=== PATIENT | male | born 1965 | race Caucasian/White ===

== ENCOUNTER 2019-06-22 09:45 | Emergency (ER) | payer MEDICAID ==
[2019-06-22] MEDS ORDERED: Sodium Chloride 0.9% 10 ML Syringe FLUSH PRN (09:53)
--- NOTE | 2019-06-22 10:09 | EDM.PDOC ---
ED HPI GENERAL MEDICAL PROBLEM - General Chief Complaint: General Time Seen by Provider: 06/22/19 09:45 Source of Information: Reports: Patient, EMS History Limitations: Reports: No Limitations - History of Present Illness INITIAL COMMENTS - FREE TEXT/NARRATIVE: Pt. presents to ER with complaints of decreased appetite, infrequent bowel movements, jaundice, chills, and fatigue. Pt. states that he has a history of cirrhosis and alcoholism. Pt. was quite confused during his transport by EMS. He was noted to be profoundly jaundiced and states that he has been for the past 2 weeks. Denies any blood in stools. No melena, hematochezia, or hematemesis. No chest pain or shortness of breath. Pt. has been undergoing intermittent paracentesis since 2017. Appears the last episode of paracentesis was 11/01. He has a history of umbilical hernia which he states they are "watching". presented to ER and states that the jaundice has been present for several years but it has gotten worse over the past several weeks. He has been more confused over the past weeks as well. Onset: Today Onset Date: 06/22/19 Location: Reports: Abdomen, Generalized Quality: Reports: Dull Severity: Moderate Associated Symptoms: Reports: Confusion, Loss of Appetite. Denies: Nausea/ Vomiting - Related Data Allergies Allergy/AdvReac Type Severity Reaction Status Date / Time No Known Allergies Allergy Verified 03/02/15 15:04 Home Meds: Home Meds Furosemide [Lasix] 40 mg PO DAILY 06/22/19 [History] Spironolactone [Aldactone] 100 mg PO DAILY 06/22/19 [History] Past Medical History - Past Health History Medical/Surgical History: Denies Medical/Surgical History ED ROS GENERAL - Review of Systems Review Of Systems: See Below Constitutional: Reports: Malaise, Weakness, Fatigue, Decreased Appetite HEENT: Reports: Other (severe jaundice) Respiratory: Reports: No Symptoms Cardiovascular: Reports: No Symptoms Endocrine: Reports: Fatigue GI/Abdominal: Reports: Abdominal Pain : Reports: No Symptoms Musculoskeletal: Reports: No Symptoms Skin: Reports: Jaundice, Pruritis Neurological: Reports: Confusion Psychiatric: Reports: No Symptoms Hematologic/Lymphatic: Reports: Anemia Immunologic: Reports: No Symptoms ED EXAM, GENERAL - Physical Exam Exam: See Below Exam Limited By: No Limitations General Appearance: Alert, WD/WN, No Apparent Distress Eye Exam: Bilateral Eye: Other (jaundice) Throat/Mouth: Normal Inspection, Normal Lips, Normal Oropharynx, Normal Voice, No Airway Compromise Head: Atraumatic, Normocephalic Neck: Normal Inspection, Supple, Non-Tender, Full Range of Motion Respiratory/Chest: No Respiratory Distress, Lungs Clear, Normal Breath Sounds, No Accessory Muscle Use, Chest Non-Tender Cardiovascular: Normal Peripheral Pulses, Regular Rate, Rhythm, No Edema, No Gallop, No JVD, No Murmur, No Rub Peripheral Pulses: 4+: Radial (L) GI/Abdominal: Soft, Abnormal Bowel Sounds (diminished bowel sounds), Hepatomegaly, Other (umbilical hernia, ascites) (Male) Exam: Deferred Rectal (Males) Exam: Deferred Back Exam: Normal Inspection, Full Range of Motion Extremities: Normal Inspection Neurological: Alert, CN II-XII Intact, Inattentive, Confused, Disoriented, Slow to Respond Psychiatric: Normal Affect, Normal Mood Skin Exam: Warm, Dry, Intact, Normal Color, No Rash Lymphatic: No Adenopathy Course - Vital Signs Last Recorded V/S: Last Vital Signs Temp 37.3 C 06/22/19 09:45 Pulse 96 06/22/19 09:45 Resp 18 06/22/19 09:45 BP 104/55 L 06/22/19 09:45 Pulse Ox 97 06/22/19 09:45 - Orders/Labs/Meds Orders: Active Orders 24 hr Category Date Time Status AMMONIA [REF] Stat Lab 06/22/19 10:06 Ordered AMYLASE [CHEM] Stat Lab 06/22/19 09:54 Ordered Blood Alcohol [ETHANOL BLOOD MEDICAL] [CHEM] Stat Lab 06/22/19 09:54 Ordered COMPREHENSIVE METABOLIC PN,CMP [CHEM] Stat Lab 06/22/19 09:54 Ordered CRP [C-REACTIVE PROTEIN] [CHEM] Stat Lab 06/22/19 09:54 Ordered CULTURE BLOOD [BC] Stat Lab 06/22/19 09:55 Ordered CULTURE BLOOD [BC] Stat Lab 06/22/19 09:55 Ordered LIPASE [CHEM] Stat Lab 06/22/19 09:56 Ordered MAGNESIUM [CHEM] Stat Lab 06/22/19 09:54 Ordered PHOSPHORUS [CHEM] Stat Lab 06/22/19 09:54 Ordered UA W/MICROSCOPIC [URIN] Stat Lab 06/22/19 09:55 Ordered Piperacillin/Tazobactam [Zosyn] 3.375 gm Med 06/22/19 11:16 Ordered Sodium Chloride 0.9% [Normal Saline] 100 ml IV STAT Sodium Chloride 0.9% [Saline Flush] Med 06/22/19 09:53 Active 10 ml FLUSH ASDIRECTED PRN Blood Culture x2 Reflex Set [OM.PC] Stat Oth 06/22/19 09:54 Ordered Peripheral IV Insertion Adult [OM.PC] Routine Oth 06/22/19 09:54 Ordered Medication Orders Piperacillin Sod/Tazobactam (Sod 3.375 gm/ Sodium Chloride) 100 mls @ 200 mls/ hr IV STAT ONE Stop: 06/22/19 11:45 Last Admin: 06/22/19 11:33 Dose: 200 mls/hr Sodium Chloride (Saline Flush) 10 ml FLUSH ASDIRECTED PRN PRN Reason: Keep Vein Open Labs: Laboratory Tests 06/22/19 06/22/19 06/22/19 Range/Units 10:10 10:10 10:10 WBC 9.3 (4.0-10.0) x10^3/uL RBC 1.67 L (4.5-6.0) x10^6/uL Hgb 7.0 L (14.0-18.0) g/dL Hct 20.2 L (40.0-52.0) % MCV 121.0 H (78.0-93.0) fL MCH 41.9 H (26.0-32.0) pg MCHC 34.7 (32.0-36.0) g/dL RDW Coeff of Lyudmila 14.7 (10.0-15.0) % Plt Count 148 (130-400) x10^3/uL Neut % (Auto) 84.6 H (50.0-80.0) % Lymph % (Auto) 4.3 L (25.0-50.0) % Gaines % (Auto) 10.9 (2.0-11.0) % Eos % (Auto) 0.1 (0.0-4.0) % Baso % (Auto) 0.1 L (0.2-1.2) % PT 20.6 H (10.0-12.8) SEC INR 1.8 L (2.0-3.5) Sodium 125 L* (136-145) mmol/L Potassium 2.7 L* (3.5-5.1) mmol/L Chloride 89 L (98-107) mmol/L Carbon Dioxide 26 (21-32) mmol/L Anion Gap 12.7 (10-20) mmol/L BUN 31 H (7-18) mg/dL Creatinine 1.6 H (0.70-1.30) mg/dL Est Cr Clr Drug Dosing TNP Estimated GFR (MDRD) 46 Glucose 99 (74-106) mg/dL Lactic Acid (0.4-2.0) mmol/L Calcium 8.0 L (8.5-10.1) mg/dL Corrected Calcium 10.08 (8.5-10.1) mg/dL Phosphorus 3.4 (2.6-4.7) mg/dL Magnesium 2.2 (1.8-2.4) mg/dL Direct Bilirubin (0.00-0.20) mg/dL AST 114 H (15-37) U/L ALT 88 H (16-63) U/L Alkaline Phosphatase 75 (46-116) U/L C-Reactive Protein 11.6 H (<=0.9) mg/dL Total Protein 7.3 (6.4-8.2) g/dL Albumin 1.4 L (3.4-5.0) g/dL Globulin 5.9 Albumin/Globulin Ratio 0.24 Amylase 41 (25-115) U/L Lipase 284 (73-393) U/L Acetaminophen (10-30) ug/ml Ethyl Alcohol < 3 (0-3) mg/dL 06/22/19 06/22/19 Range/Units 10:10 10:10 WBC (4.0-10.0) x10^3/uL RBC (4.5-6.0) x10^6/uL Hgb (14.0-18.0) g/dL Hct (40.0-52.0) % MCV (78.0-93.0) fL MCH (26.0-32.0) pg MCHC (32.0-36.0) g/dL RDW Coeff of Lyudmila (10.0-15.0) % Plt Count (130-400) x10^3/uL Neut % (Auto) (50.0-80.0) % Lymph % (Auto) (25.0-50.0) % Gaines % (Auto) (2.0-11.0) % Eos % (Auto) (0.0-4.0) % Baso % (Auto) (0.2-1.2) % PT (10.0-12.8) SEC INR (2.0-3.5) Sodium (136-145) mmol/L Potassium (3.5-5.1) mmol/L Chloride (98-107) mmol/L Carbon Dioxide (21-32) mmol/L Anion Gap (10-20) mmol/L BUN (7-18) mg/dL Creatinine (0.70-1.30) mg/dL Est Cr Clr Drug Dosing Estimated GFR (MDRD) Glucose (74-106) mg/dL Lactic Acid 3.0 H* (0.4-2.0) mmol/L Calcium (8.5-10.1) mg/dL Corrected Calcium (8.5-10.1) mg/dL Phosphorus (2.6-4.7) mg/dL Magnesium (1.8-2.4) mg/dL Direct Bilirubin 25.89 H (0.00-0.20) mg/dL AST (15-37) U/L ALT (16-63) U/L Alkaline Phosphatase (46-116) U/L C-Reactive Protein (<=0.9) mg/dL Total Protein (6.4-8.2) g/dL Albumin (3.4-5.0) g/dL Globulin Albumin/Globulin Ratio Amylase (25-115) U/L Lipase (73-393) U/L Acetaminophen 0 L (10-30) ug/ml Ethyl Alcohol (0-3) mg/dL Meds: Medications Generic Name Dose Route Start Last Admin Trade Name Freq PRN Reason Stop Dose Admin Piperacillin Sod/Tazobactam 100 mls @ 200 mls/hr 06/22/19 11:16 06/22/19 11: 33 Sod 3.375 gm/ Sodium Chloride IV 06/22/19 11:45 200 mls/hr STAT ONE Administration Sodium Chloride 10 ml 06/22/19 09:53 Saline Flush FLUSH ASDIRECTED PRN Keep Vein Open - Re-Assessments/Exams Free Text/Narrative Re-Assessment/Exam: Pt. was started on IV zosyn 3.375gm IV. CT abdomen and pelvis was cancelled in light of his laboratory findings and back up of patient's in the radiology department. Departure - Departure Time of Disposition: 11:43 Disposition: DC/Tfer to [facility] 02 Clinical Impression: Hepatic encephalopathy, JESUS (acute kidney injury), Anemia - Discharge Information Referrals: Abby Khoury MD [Primary Care Provider] - Forms: ED Department Discharge - Problem List Review Problem List Initiated/Reviewed/Updated: Yes - My Orders Last 24 Hours: My Active Orders 06/22/19 09:53 Sodium Chloride 0.9% [Saline Flush] 10 ml FLUSH ASDIRECTED PRN 06/22/19 09:54 AMYLASE [CHEM] Stat Blood Alcohol [ETHANOL BLOOD MEDICAL] [CHEM] Stat COMPREHENSIVE METABOLIC PN,CMP [CHEM] Stat CRP [C-REACTIVE PROTEIN] [CHEM] Stat MAGNESIUM [CHEM] Stat PHOSPHORUS [CHEM] Stat Blood Culture x2 Reflex Set [OM.PC] Stat Peripheral IV Insertion Adult [OM.PC] Routine 06/22/19 09:55 CULTURE BLOOD [BC] Stat CULTURE BLOOD [BC] Stat UA W/MICROSCOPIC [URIN] Stat 06/22/19 09:56 LIPASE [CHEM] Stat 06/22/19 10:06 AMMONIA [REF] Stat 06/22/19 11:16 Piperacillin/Tazobactam [Zosyn] 3.375 gm Sodium Chloride 0.9% [Normal Saline] 100 ml IV STAT - Assessment/Plan Last 24 Hours: My Active Orders 06/22/19 09:53 Sodium Chloride 0.9% [Saline Flush] 10 ml FLUSH ASDIRECTED PRN 06/22/19 09:54 AMYLASE [CHEM] Stat Blood Alcohol [ETHANOL BLOOD MEDICAL] [CHEM] Stat COMPREHENSIVE METABOLIC PN,CMP [CHEM] Stat CRP [C-REACTIVE PROTEIN] [CHEM] Stat MAGNESIUM [CHEM] Stat PHOSPHORUS [CHEM] Stat Blood Culture x2 Reflex Set [OM.PC] Stat Peripheral IV Insertion Adult [OM.PC] Routine 06/22/19 09:55 CULTURE BLOOD [BC] Stat CULTURE BLOOD [BC] Stat UA W/MICROSCOPIC [URIN] Stat 06/22/19 09:56 LIPASE [CHEM] Stat 06/22/19 10:06 AMMONIA [REF] Stat 06/22/19 11:16 Piperacillin/Tazobactam [Zosyn] 3.375 gm Sodium Chloride 0.9% [Normal Saline] 100 ml IV STAT Plan: Pt. will be transferred to [facility]. He will be transported via [facility] ground ambulance. He was given a total of 1 liter lf NS in ER and started on Zosyn 3.375gm IV. I spoke with Dr. Márquez who accepts the patient in transfer. All questions were answered.
[2019-06-22 11:06] LABS: CHLORIDE,CL 89 mmol/L (98-107)
[2019-06-22 11:09] LABS: ANION GAP 12.7 mmol/L (10-20); SODIUM,NA 125 mmol/L (136-145)
[2019-06-22] MEDS ORDERED: Piperacillin/Tazobactam 3.375 GM in Sodium Chloride 0.9% 100 ML IV ONE (11:16)
[2019-06-22 12:50] VITALS: BP 105/65; PULSE 92
== END 2019-06-22 13:15 | disposition short-term general hospital (02) ==
LOC: VM.ED 09:45
DX: K72.90 Hepatic failure, unspecified without coma (principal); N17.9 Acute kidney failure, unspecified; D64.9 Anemia, unspecified; Z79.899 Other long term (current) drug therapy
CPT/HCPCS: 36415; 80053; 82140; 82150; 82248; 83605; 83690; 83735; 84100; 85025; 85610; 86140; 87040; 96365; 99285; G0480; J2543; J7050